=== PATIENT | female | born 1955 | race Caucasian/White ===

== ENCOUNTER 2020-06-03 15:21 | Emergency (ER) | payer BC ==
[2020-06-03 15:48] VITALS: BP 121/73; PULSE 98
--- NOTE | 2020-06-03 15:51 | CR ---
PROCEDURE INFORMATION: Exam: XR Chest, 1 View Exam date and time: 06/03/2020 3:41 PM Age: 65 years old Clinical indication: Other: Covid +; Additional info: Chest pain TECHNIQUE: Imaging protocol: XR of the chest Views: 1 view. COMPARISON: No relevant prior studies available. FINDINGS: Lungs: Unremarkable. No consolidation. Pleural space: Unremarkable. No pleural effusion. No pneumothorax. Heart/Mediastinum: Unremarkable. No cardiomegaly. Bones/joints: Unremarkable. IMPRESSION: No acute findings.
[2020-06-03 16:06] LABS: ANION GAP 16.1 mEq/L (7-13); CHLORIDE,CL 102 mmol/L (98-107); SODIUM,NA 140 mmol/L (136-145)
--- NOTE | 2020-06-03 16:11 | EDM.PDOC ---
ED HPI GENERAL MEDICAL PROBLEM - General Chief Complaint: Respiratory Problem Stated Complaint: SHORTNESS OF BREATH Time Seen by Provider: 06/03/20 16:00 Source of Information: Reports: Patient, RN, RN Notes Reviewed History Limitations: Reports: Respiratory Distress - History of Present Illness INITIAL COMMENTS - FREE TEXT/NARRATIVE: Patient presents to ER with complaint of shortness of breath. Patient states she did notice she was somewhat short of breath the last 2 days, but today is unable to ambulate within her apartment without becoming very short of breath. Patient did have a right knee replacement in the beginning of April. States that right leg has increased swelling to it today, denies redness or warmth to the area. Patient states her thyroid has been "out of whack" and her dose of levothyroxine was just increased to 175mcg. Patient denies any chest pains, N/V/D, fever or chills. Patient states her only known exposure to Covid-19 was on May 12. Onset: Today, Gradual - Related Data Allergies Allergy/AdvReac Type Severity Reaction Status Date / Time erythromycin lactobionate Allergy Stomach Verified 06/03/20 15:42 [From Erythrocin] Ache Home Meds: Home Meds Calcium Carbonate [High Potency Calcium] 600 mg PO DAILY 01/11/14 [History] Levothyroxine Sodium [Synthroid] 175 mcg PO DAILY 01/11/14 [History] Multivitamin [Daily Multiple Vitamin] 1 tab PO DAILY 01/11/14 [History] Venlafaxine [Effexor XR 24 Hr] 150 mg PO DAILY 01/11/14 [History] metFORMIN [Glucophage] 1,000 tab PO BID 06/12/14 [History] atorvaSTATin [Lipitor] 10 mg PO BEDTIME 09/12/14 [History] Aspirin [Halfprin] 81 mg PO DAILY 12/02/14 [History] Losartan [Cozaar] 25 mg PO DAILY 12/02/14 [History] Magnesium 500 mg PO DAILY 02/16/18 [History] Past Medical History HEENT History: Reports: Hard of Hearing, Impaired Vision Cardiovascular History: Reports: High Cholesterol, Hypertension Respiratory History: Reports: None Gastrointestinal History: Reports: GERD Genitourinary History: Reports: None 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 Musculoskeletal History: Reports: Osteoarthritis Neurological History: Reports: None Psychiatric History: Reports: Depression Endocrine/Metabolic History: Reports: Diabetes, Type II, Hypothyroidism, Obesity/BMI 30+ Hematologic History: Reports: None Immunologic History: Reports: None Oncologic (Cancer) History: Reports: None Dermatologic History: Reports: Psoriasis - Infectious Disease History Infectious Disease History: Reports: None - Past Surgical History Head Surgeries/Procedures: Reports: None HEENT Surgical History: Reports: Adenoidectomy, Tonsillectomy GI Surgical History: Reports: Cholecystectomy, Colonoscopy Female Surgical History: Reports: Hysterectomy Musculoskeletal Surgical History: Reports: Knee Replacement Other Musculoskeletal Surgeries/Procedures:: foot surgery Social & Family History - Family History Family Medical History: No Pertinent Family History - Tobacco Use Tobacco Use Status *Q: Never Tobacco User Second Hand Smoke Exposure: No - Caffeine Use Caffeine Use: Reports: Coffee - Recreational Drug Use Recreational Drug Use: No - Living Situation & Occupation Living situation: Reports: , Alone Occupation: Employed ED ROS GENERAL - Review of Systems Review Of Systems: Comprehensive ROS is negative, except as noted in HPI. ED EXAM, GENERAL - Physical Exam Exam: See Below Exam Limited By: Respiratory Distress General Appearance: Alert, WD/WN, Anxious, Moderate Distress Eye Exam: Bilateral Eye: EOMI, Normal Inspection Ears: Normal External Exam, Hearing Grossly Normal Nose: Normal Inspection Throat/Mouth: Normal Inspection, Normal Voice, No Airway Compromise Head: Atraumatic, Normocephalic Neck: Normal Inspection, Supple, Non-Tender, Full Range of Motion Respiratory/Chest: No Accessory Muscle Use, Chest Non-Tender, Decreased Breath Sounds Cardiovascular: Normal Peripheral Pulses, Regular Rate, Rhythm, No Gallop, No JVD, No Murmur, No Rub, Other (swelling to the right knee/calf) Peripheral Pulses: 2+: Radial (L), Radial (R), Dorsalis Pedis (L), Dorsalis Pedis (R) GI/Abdominal: Normal Bowel Sounds, Soft, Non-Tender, No Organomegaly, No Disten tion, No Abnormal Bruit, No Mass, Pelvis Stable (Female) Exam: Deferred Rectal (Female) Exam: Deferred Back Exam: Normal Inspection, Full Range of Motion, NT Extremities: Joint Swelling (right leg swelling) Neurological: Alert, Oriented, CN II-XII Intact, Normal Cognition, Normal Gait, Normal Reflexes, No Motor/Sensory Deficits Psychiatric: Normal Affect, Normal Mood, Anxious Skin Exam: Warm, Dry, Intact, Normal Color, No Rash Lymphatic: No Adenopathy Course - Vital Signs Last Recorded V/S: Last Vital Signs Temp 96.3 F L 06/03/20 15:44 Pulse 98 06/03/20 15:44 Resp 24 H 06/03/20 15:44 BP 121/73 06/03/20 15:44 Pulse Ox 82 L 06/03/20 15:44 - Orders/Labs/Meds Orders: Active Orders 24 hr Category Date Time Status EKG Documentation Completion [RC] STAT Care 06/03/20 15:26 Active URINALYSIS W/MICROSCOPIC [UA W/MICROSCOPIC] [URIN] Stat Lab 06/03/20 15:27 Ordered Heparin Sodium/0.45% NaCl [Heparin 25,000 Units in 1/2 Med 06/03/20 17:30 Active NS 500 ML] 25,000 units in 500 ml IV TITRATE Medication Orders Heparin Sodium/Sodium Chloride (Heparin 25,000 Units In 1/2 Ns 500 Ml) 25,000 units in 500 mls @ 35.206 mls/hr IV TITRATE YASMIN; Protocol Last Admin: 06/03/20 17:28 Dose: 18 units/kg/hr, 35.206 mls/hr Documented by: GAIL Cosigned by: [id number] Labs: Laboratory Tests 06/03/20 06/03/20 06/03/20 Range/Units 15:27 15:38 15:38 WBC 10.4 H (5.0-10.0) 10^3/uL RBC 4.21 (4.2-5.4) 10^6/uL Hgb 12.2 (12.0-16.0) g/dL Hct 37.5 (37.0-47.0) % MCV 89.1 (80-100) fL MCH 29.0 (27.0-34.0) pg MCHC 32.5 L (33.0-35.0) g/dL Plt Count 361 (150-450) 10^3/uL Neut % (Auto) 69.0 (42.2-75.2) % Lymph % (Auto) 22.4 (20.5-50.1) % Aiken % (Auto) 6.9 (2-8) % Eos % (Auto) 1.5 (1.0-3.0) % Baso % (Auto) 0.2 (0.0-1.0) % PT 9.9 (9.0-12.0) SEC INR 1.0 (0.9-1.2) D-Dimer, Quantitative (0-400) ng/mL Sodium (136-145) mmol/L Potassium (3.5-5.1) mmol/L Chloride (98-107) mmol/L Carbon Dioxide (21-32) mmol/L Anion Gap (7-13) mEq/L BUN (7-18) mg/dL Creatinine (0.55-1.02) mg/dL Est Cr Clr Drug Dosing Estimated GFR (MDRD) BUN/Creatinine Ratio (No establ ref range) Glucose (74-99) mg/dL Calcium (8.5-10.1) mg/dL Total Bilirubin (0.2-1.0) mg/dL AST (15-37) U/L ALT (14-59) U/L Alkaline Phosphatase (46-116) U/L Lactate Dehydrogenase (81-234) U/L Troponin I (0.000-0.056) ng/mL C-Reactive Protein (0.0-0.9) mg/dL B-Natriuretic Peptide (0-100) pg/ml Total Protein (6.4-8.2) g/dL Albumin (3.4-5.0) g/dL Globulin Albumin/Globulin Ratio TSH, Ultra Sensitive (0.36-3.74) uIU/mL SARS CoV-2 RNA Rapid CHUCKY Positive H (NEGATIVE) 06/03/20 06/03/20 06/03/20 Range/Units 15:38 15:38 15:38 WBC (5.0-10.0) 10^3/uL RBC (4.2-5.4) 10^6/uL Hgb (12.0-16.0) g/dL Hct (37.0-47.0) % MCV (80-100) fL MCH (27.0-34.0) pg MCHC (33.0-35.0) g/dL Plt Count (150-450) 10^3/uL Neut % (Auto) (42.2-75.2) % Lymph % (Auto) (20.5-50.1) % Aiken % (Auto) (2-8) % Eos % (Auto) (1.0-3.0) % Baso % (Auto) (0.0-1.0) % PT (9.0-12.0) SEC INR (0.9-1.2) D-Dimer, Quantitative 3110 H (0-400) ng/mL Sodium 140 (136-145) mmol/L Potassium 4.1 (3.5-5.1) mmol/L Chloride 102 (98-107) mmol/L Carbon Dioxide 26 (21-32) mmol/L Anion Gap 16.1 H (7-13) mEq/L BUN 13 (7-18) mg/dL Creatinine 1.02 (0.55-1.02) mg/dL Est Cr Clr Drug Dosing TNP Estimated GFR (MDRD) 55 BUN/Creatinine Ratio 12.7 (No establ ref range) Glucose 160 H (74-99) mg/dL Calcium 8.7 (8.5-10.1) mg/dL Total Bilirubin 0.4 (0.2-1.0) mg/dL AST 21 (15-37) U/L ALT 31 (14-59) U/L Alkaline Phosphatase 92 (46-116) U/L Lactate Dehydrogenase 240 H (81-234) U/L Troponin I 1.187 H* (0.000-0.056) ng/mL C-Reactive Protein 3.9 H (0.0-0.9) mg/dL B-Natriuretic Peptide 197 H (0-100) pg/ml Total Protein 6.9 (6.4-8.2) g/dL Albumin 3.4 (3.4-5.0) g/dL Globulin 3.5 Albumin/Globulin Ratio 1.0 TSH, Ultra Sensitive 5.31 H (0.36-3.74) uIU/mL SARS CoV-2 RNA Rapid CHUCKY (NEGATIVE) Meds: Medications Generic Name Dose Route Start Last Admin Trade Name Freq PRN Reason Stop Dose Admin Heparin Sodium/Sodium Chloride 25,000 units in 500 mls @ 35.206 mls/hr 06/03/20 17:30 06/03/20 17:28 Heparin 25,000 Units In / Ns 500 Ml IV 18 units/kg/hr TITRATE YASMIN 35.206 mls/hr Administration Protocol 18 UNITS/KG/HR Discontinued Medications Generic Name Dose Route Start Last Admin Trade Name Freq PRN Reason Stop Dose Admin Dexamethasone 6 mg 06/03/20 18:33 06/03/20 18:39 Decadron IV 06/03/20 18:34 6 mg ONETIME ONE Administration Heparin Sodium (Porcine) 5,000 units 06/03/20 17:16 06/03/20 17:32 Heparin Sodium IVPUSH 06/03/20 17:17 5,000 units .BOLUS ONE Administration Iopamidol 100 ml 06/03/20 16:18 06/03/20 16:29 [id number] (76%) IVPUSH 06/03/20 16:19 100 ml ONETIME ONE Administration - Radiology Interpretation Free Text/Narrative:: Chest xray: PROCEDURE INFORMATION: Exam: XR Chest, 1 View Exam date and time: 06/03/2020 3:41 PM Age: 65 years old Clinical indication: Other: Covid +; Additional info: Chest pain TECHNIQUE: Imaging protocol: XR of the chest Views: 1 view. COMPARISON: No relevant prior studies available. FINDINGS: Lungs: Unremarkable. No consolidation. Pleural space: Unremarkable. No pleural effusion. No pneumothorax. Heart/Mediastinum: Unremarkable. No cardiomegaly. Bones/joints: Unremarkable. IMPRESSION: No acute findings. Thank you for allowing us to participate in the care of your patient. Dictated and Authenticated by: Damari Voss MD 06/03/2020 3:51 PM Central Time ([place] & [place]) Chest CT with contrast: PROCEDURE INFORMATION: Exam: CT Chest With Contrast; Diagnostic Exam date and time: 06/03/2020 4:52 PM Age: 65 years old Clinical indication: Shortness of breath; Patient HX: Pe study; Additional info: Ddimer 3100, covid + TECHNIQUE: Imaging protocol: Diagnostic computed tomography of the chest with intravenous contrast. Radiation optimization: All CT scans at this facility use at least one of these dose optimization techniques: automated exposure control; mA and/or kV adjustment per patient size (includes targeted exams where dose is matched to clinical indication); or iterative reconstruction. Contrast material: [id number]; Contrast volume: 100 ml; Contrast route: INTRAVENOUS (IV); COMPARISON: CR Chest 1V Frontal 06/03/2020 3:41 PM FINDINGS: Lungs: There are multifocal bilateral peripheral nodular and ill-defined ground- glass infiltrates predominating at the lung bases suspicious for COVID-19 pneumonitis. Pleural space: Unremarkable. No pneumothorax. No pleural effusion. Heart: There is thickening of the ventricular septum and dilatation of the right heart chambers. There is no pericardial effusion. Mediastinal space: Small hiatal hernia. Pulmonary arteries: There is a large filling defect straddling the bifurcation of the main pulmonary artery consistent with a saddle embolus. The main pulmonary artery is dilated at 3.1 cm. Thrombus continues into the right and left main pulmonary arteries. Thrombus is identified right segmental and subsegmental right lower lobe branches. Thrombus extends to the left upper lobe segmental and left lower lobe segmental and subsegmental branches. Aorta: Unremarkable. No aortic aneurysm. Lymph nodes: Unremarkable. No enlarged lymph nodes. Small mediastinal lymph nodes measure less than 1 cm. Gallbladder and bile ducts: There has been a cholecystectomy. Bones/joints: Unremarkable. No acute fracture. Soft tissues: Unremarkable. IMPRESSION: 1. Extensive acute pulmonary embolic disease. 2. Dilated main pulmonary artery may reflect pulmonary hypertension. 3. Mild ventricular septal thickening and asymmetric prominence of the right heart. Recommend correlation with echocardiogram to exclude right ventricular dysfunction. 4. Multifocal peripheral nodular airspace infiltrates suspicious for pneumonitis. Primary differential diagnosis is COVID-19 pneumonitis. Thank you for allowing us to participate in the care of your patient. Dictated and Authenticated by: Lynne Chen MD 06/03/2020 5:35 PM Central Time ([place] & [place]) See rad report - Re-Assessments/Exams Free Text/Narrative Re-Assessment/Exam: 06/03/20 17:56 Discussed patient case with Dr. Mares who agreed to accept the patient to [facility]. Patient will transfer per air. 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 use: without terminal make up operator use Diabetes mellitus complication status: without complication Qualified Code(s): E11.9 - Type 2 diabetes mellitus without complications Hypothyroidism Qualifiers: Hypothyroidism type: unspecified Qualified Code(s): E03.9 - Hypothyroidism, unspecified - Discharge Information *PRESCRIPTION DRUG MONITORING PROGRAM REVIEWED*: No *COPY OF PRESCRIPTION DRUG MONITORING REPORT IN PATIENT XU: No Forms: ED Department Discharge, Interfacility Transfer DIA Sepsis Event Note (ED) - Evaluation Sepsis Screening Result: No Definite Risk - Focused Exam Vital Signs: Vital Signs Temp Pulse Resp BP Pulse Ox 06/03/20 15:44 96.3 F L 98 24 H 121/73 82 L - My Orders Last 24 Hours: My Active Orders 06/03/20 15:26 EKG Documentation Completion [RC] STAT 06/03/20 15:27 URINALYSIS W/MICROSCOPIC [UA W/MICROSCOPIC] [URIN] Stat 06/03/20 17:30 Heparin Sodium/0.45% NaCl [Heparin 25,000 Units in 1/2 NS 500 ML] 25,000 units in 500 ml IV TITRATE - Assessment/Plan Last 24 Hours: My Active Orders 06/03/20 15:26 EKG Documentation Completion [RC] STAT 06/03/20 15:27 URINALYSIS W/MICROSCOPIC [UA W/MICROSCOPIC] [URIN] Stat 06/03/20 17:30 Heparin Sodium/0.45% NaCl [Heparin 25,000 Units in 1/2 NS 500 ML] 25,000 units in 500 ml IV TITRATE
[2020-06-03] MEDS ORDERED: Iopamidol 755 Mg/ML 100 ML Bottle IVPUSH ONE (16:18)
[2020-06-03] MEDS ORDERED: Heparin Sodium 5,000 Units/ML Vial IVPUSH ONE (17:16)
[2020-06-03] MEDS ORDERED: Heparin Sodium/0.45% NaCl 25,000 UNITS/500 ML BAG IV SCH (17:30)
--- NOTE | 2020-06-03 17:35 | CT ---
PROCEDURE INFORMATION: Exam: CT Chest With Contrast; Diagnostic Exam date and time: 06/03/2020 4:52 PM Age: 65 years old Clinical indication: Shortness of breath; Patient HX: Pe study; Additional info: Ddimer 3100, covid + TECHNIQUE: Imaging protocol: Diagnostic computed tomography of the chest with intravenous contrast. Radiation optimization: All CT scans at this facility use at least one of these dose optimization techniques: automated exposure control; mA and/or kV adjustment per patient size (includes targeted exams where dose is matched to clinical indication); or iterative reconstruction. Contrast material: [id number]; Contrast volume: 100 ml; Contrast route: INTRAVENOUS (IV); COMPARISON: CR Chest 1V Frontal 06/03/2020 3:41 PM FINDINGS: Lungs: There are multifocal bilateral peripheral nodular and ill-defined ground-glass infiltrates predominating at the lung bases suspicious for COVID-19 pneumonitis. Pleural space: Unremarkable. No pneumothorax. No pleural effusion. Heart: There is thickening of the ventricular septum and dilatation of the right heart chambers. There is no pericardial effusion. Mediastinal space: Small hiatal hernia. Pulmonary arteries: There is a large filling defect straddling the bifurcation of the main pulmonary artery consistent with a saddle embolus. The main pulmonary artery is dilated at 3.1 cm. Thrombus continues into the right and left main pulmonary arteries. Thrombus is identified right segmental and subsegmental right lower lobe branches. Thrombus extends to the left upper lobe segmental and left lower lobe segmental and subsegmental branches. Aorta: Unremarkable. No aortic aneurysm. Lymph nodes: Unremarkable. No enlarged lymph nodes. Small mediastinal lymph nodes measure less than 1 cm. Gallbladder and bile ducts: There has been a cholecystectomy. Bones/joints: Unremarkable. No acute fracture. Soft tissues: Unremarkable. IMPRESSION: 1. Extensive acute pulmonary embolic disease. 2. Dilated main pulmonary artery may reflect pulmonary hypertension. 3. Mild ventricular septal thickening and asymmetric prominence of the right heart. Recommend correlation with echocardiogram to exclude right ventricular dysfunction. 4. Multifocal peripheral nodular airspace infiltrates suspicious for pneumonitis. Primary differential diagnosis is COVID-19 pneumonitis.
[2020-06-03] MEDS ORDERED: Dexamethasone 4 MG/ML SDV IV ONE (18:33)
== END 2020-06-03 19:38 ==
LOC: DL.ED 15:21
DX: U07.1 COVID-19 (principal); J12.89 Other viral pneumonia; I26.92 Saddle embolus of pulmonary artery without acute cor pulmonale; E11.9 Type 2 diabetes mellitus without complications; E03.9 Hypothyroidism, unspecified; R79.89 Other specified abnormal findings of blood chemistry; I10 Essential (primary) hypertension; E78.00 Pure hypercholesterolemia, unspecified; F32.9 Major depressive disorder, single episode, unspecified; E66.9 Obesity, unspecified; Z90.49 Acquired absence of other specified parts of digestive tract; Z90.710 Acquired absence of both cervix and uterus; Z79.84 Long term (current) use of oral hypoglycemic drugs; Z79.82 Long term (current) use of aspirin; Z88.1 Allergy status to other antibiotic agents; Z79.899 Other long term (current) drug therapy
CPT/HCPCS: 36415; 71045; 71260; 80053; 83615; 83880; 84443; 84484; 85025; 85379; 85610; 86140; 87635; 93005; 96365; 96366; 96375; 99285; J1100; J1644; Q9967; U0002

== ENCOUNTER 2020-06-09 06:56 | Emergency (ER) | payer BC ==
[2020-06-09 07:24] VITALS: BP 161/82; PULSE 74
--- NOTE | 2020-06-09 07:55 | EDM.PDOC ---
ED HPI GENERAL MEDICAL PROBLEM - General Chief Complaint: Chest Pain Stated Complaint: SHORTNESS OF BREATH CHEST PAIN Time Seen by Provider: 06/09/20 07:40 Source of Information: Reports: Patient History Limitations: Reports: No Limitations - History of Present Illness INITIAL COMMENTS - FREE TEXT/NARRATIVE: Patient is here for neck/jaw pain that is radiating to her left arm. It started around 0400 this morning. She was diagnosed with COVID pneumonia along with bilateral PE 6 days ago and treated at [facility]. She feels like she just slept on it wrong, but is concerned it may be something more. She was a little more short of breath this morning as well, but thinks it may be due to anxiety. She is able to rub/push on her neck and feels like it is muscular. She does note some tingling in her left arm as well. She was started on Eliquis last week and did take it this morning. Onset: Today Onset Time: 04:00 Location: Reports: Neck, Upper Extremity, Left Left Jaw Pain Score (Numeric/FACES): 4 - Related Data Allergies Allergy/AdvReac Type Severity Reaction Status Date / Time erythromycin lactobionate Allergy Stomach Verified 06/09/20 07:24 [From Erythrocin] Ache Home Meds: Home Meds Calcium Carbonate [High Potency Calcium] 600 mg PO DAILY 01/11/14 [History] Levothyroxine Sodium [Synthroid] 175 mcg PO DAILY 01/11/14 [History] Multivitamin [Daily Multiple Vitamin] 1 tab PO DAILY 01/11/14 [History] Venlafaxine [Effexor XR 24 Hr] 150 mg PO DAILY 01/11/14 [History] metFORMIN [Glucophage] 1,000 tab PO BID 06/12/14 [History] atorvaSTATin [Lipitor] 10 mg PO BEDTIME 09/12/14 [History] Aspirin [Halfprin] 81 mg PO DAILY 12/02/14 [History] Losartan [Cozaar] 25 mg PO DAILY 12/02/14 [History] Magnesium 500 mg PO DAILY 02/16/18 [History] Apixaban [Eliquis] 10 mg PO BID 06/09/20 [History] Omeprazole 20 mg PO DAILY 06/09/20 [History] dexAMETHasone [Dexamethasone] 6 mg PO DAILY 06/09/20 [History] Past Medical History HEENT History: Reports: Hard of Hearing, Impaired Vision Cardiovascular History: Reports: High Cholesterol, Hypertension Respiratory History: Reports: PE Gastrointestinal History: Reports: GERD Genitourinary History: Reports: None 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 Musculoskeletal History: Reports: Osteoarthritis Neurological History: Reports: None Psychiatric History: Reports: Depression Endocrine/Metabolic History: Reports: Diabetes, Type II, Hypothyroidism, Obesity/BMI 30+ Hematologic History: Reports: None Immunologic History: Reports: None Oncologic (Cancer) History: Reports: None Dermatologic History: Reports: Psoriasis - Infectious Disease History Infectious Disease History: Reports: Novel Coronavirus - Past Surgical History Head Surgeries/Procedures: Reports: None HEENT Surgical History: Reports: Adenoidectomy, Tonsillectomy GI Surgical History: Reports: Cholecystectomy, Colonoscopy Female Surgical History: Reports: Hysterectomy Musculoskeletal Surgical History: Reports: Knee Replacement Other Musculoskeletal Surgeries/Procedures:: foot surgery Social & Family History - Family History Family Medical History: No Pertinent Family History - Tobacco Use Tobacco Use Status *Q: Never Tobacco User Second Hand Smoke Exposure: No - Caffeine Use Caffeine Use: Reports: Coffee - Recreational Drug Use Recreational Drug Use: No - Living Situation & Occupation Living situation: Reports: , Alone Occupation: Employed ED ROS GENERAL - Review of Systems Review Of Systems: Comprehensive ROS is negative, except as noted in HPI. ED EXAM, GENERAL - Physical Exam Exam: See Below Exam Limited By: No Limitations General Appearance: Alert, WD/WN, No Apparent Distress Eye Exam: Bilateral Eye: Normal Inspection Ears: Normal External Exam Head: Atraumatic, Normocephalic Neck: Normal Inspection, Supple, Tender Lateral (left, with some muscle spasms noted). No: Lymphadenopathy (L) Respiratory/Chest: No Respiratory Distress, Lungs Clear, Normal Breath Sounds, No Accessory Muscle Use Cardiovascular: Regular Rate, Rhythm, No Gallop, No Murmur, No Rub GI/Abdominal: Soft, No Distention (Female) Exam: Deferred Rectal (Female) Exam: Deferred Back Exam: Normal Inspection, Full Range of Motion Extremities: Normal Inspection Neurological: Alert, Oriented, Normal Cognition Psychiatric: Normal Affect, Normal Mood Skin Exam: Warm, Dry, Intact, Normal Color Lymphatic: No Adenopathy Course - Vital Signs Last Recorded V/S: Last Vital Signs Temp 97.8 F 06/09/20 07:05 Pulse 74 06/09/20 07:05 Resp 18 11/28/20 07:05 BP 161/82 H 06/09/20 07:05 Pulse Ox 92 L 06/09/20 07:05 - Orders/Labs/Meds Orders: Active Orders 24 hr Category Date Time Status EKG Documentation Completion [RC] STAT Care 06/09/20 07:48 Ordered Labs: Laboratory Tests 06/09/20 06/09/20 06/09/20 Range/Units 07:15 07:15 07:15 WBC 10.2 H (5.0-10.0) 10^3/uL RBC 3.75 L (4.2-5.4) 10^6/uL Hgb 10.8 L (12.0-16.0) g/dL Hct 33.5 L (37.0-47.0) % MCV 89.3 (80-100) fL MCH 28.8 (27.0-34.0) pg MCHC 32.2 L (33.0-35.0) g/dL Plt Count 413 (150-450) 10^3/uL Neut % (Auto) 58.6 (42.2-75.2) % Lymph % (Auto) 30.7 (20.5-50.1) % [place] % (Auto) 9.4 H (2-8) % Eos % (Auto) 1.1 (1.0-3.0) % Baso % (Auto) 0.2 (0.0-1.0) % Add Manual Diff Yes Neutrophils % (Manual) 59 (42-75) % Lymphocytes % (Manual) 36 (20-50) % Monocytes % (Manual) 5 (2-8) % D-Dimer, Quantitative 1700 H (0-400) ng/mL Sodium 141 (136-145) mmol/L Potassium 3.8 (3.5-5.1) mmol/L Chloride 104 (98-107) mmol/L Carbon Dioxide 27 (21-32) mmol/L Anion Gap 13.8 H (7-13) mEq/L BUN 13 (7-18) mg/dL Creatinine 0.94 (0.55-1.02) mg/dL Est Cr Clr Drug Dosing 47.82 mL/min Estimated GFR (MDRD) 60 BUN/Creatinine Ratio 13.8 (No establ ref range) Glucose 102 H (74-99) mg/dL Calcium 8.6 (8.5-10.1) mg/dL Total Bilirubin 0.6 (0.2-1.0) mg/dL AST 9 L (15-37) U/L ALT 32 (14-59) U/L Alkaline Phosphatase 70 (46-116) U/L Lactate Dehydrogenase 248 H (81-234) U/L Troponin I 0.029 (0.000-0.056) ng/mL B-Natriuretic Peptide 198 H (0-100) pg/ml Total Protein 5.9 L (6.4-8.2) g/dL Albumin 3.0 L (3.4-5.0) g/dL Globulin 2.9 Albumin/Globulin Ratio 1.03 Departure - Departure Time of Disposition: 08:46 Disposition: Home, Self-Care 01 Condition: Good Clinical Impression: COVID-19, Bilateral pulmonary embolism Neck muscle strain Qualifiers: Encounter type: initial encounter Qualified Code(s): S16.1XXA - Strain of muscle, fascia and tendon at neck level, initial encounter Instructions: Muscle Cramps and Spasms, [id number] Referrals: Amanda Lopez MD [Physician] - (Keep upcoming appointment on Wednesday 06/13) Forms: ED Department Discharge Additional Instructions: Continue current medications as prescribed Keep follow up with Dr. Hall Return to the ER if pain worsens or changes Sepsis Event Note (ED) - Evaluation Sepsis Screening Result: No Definite Risk - Focused Exam Vital Signs: Vital Signs Temp Pulse Resp BP Pulse Ox 06/09/20 07:05 97.8 F 74 18 161/82 H 92 L - My Orders Last 24 Hours: My Active Orders 06/09/20 07:48 EKG Documentation Completion [RC] STAT - Assessment/Plan Last 24 Hours: My Active Orders 06/09/20 07:48 EKG Documentation Completion [RC] STAT
[2020-06-09 08:08] LABS: ANION GAP 13.8 mEq/L (7-13)
== END 2020-06-09 08:59 | disposition home or self-care (01) ==
LOC: DL.ED 06:56
DX: U07.1 COVID-19 (principal); I26.99 Other pulmonary embolism without acute cor pulmonale; E78.00 Pure hypercholesterolemia, unspecified; I10 Essential (primary) hypertension; K21.9 Gastro-esophageal reflux disease without esophagitis; M19.90 Unspecified osteoarthritis, unspecified site; F32.9 Major depressive disorder, single episode, unspecified; E11.9 Type 2 diabetes mellitus without complications; E03.9 Hypothyroidism, unspecified; E66.9 Obesity, unspecified; Z68.38 Body mass index [BMI] 38.0-38.9, adult; Z86.711 Personal history of pulmonary embolism; Z79.82 Long term (current) use of aspirin; Z79.01 Long term (current) use of anticoagulants; Z88.1 Allergy status to other antibiotic agents
CPT/HCPCS: 36415; 80053; 83615; 83880; 84484; 85025; 85379; 93005; 99285-25

== ENCOUNTER 2020-08-13 23:22 | Emergency (ER) | payer BC ==
--- NOTE | 2020-08-13 23:27 | EDM.PDOC ---
ED HPI GENERAL MEDICAL PROBLEM - General Stated Complaint: CHEST PAINS Time Seen by Provider: 08/14/20 00:10 Source of Information: Reports: Patient History Limitations: Reports: No Limitations - History of Present Illness INITIAL COMMENTS - FREE TEXT/NARRATIVE: ED with c/o chest pain radiating up neck. 2nd COVID vaccine today. HX COVID, PE, angina, Chest Pain Score (Numeric/FACES): 7 - Related Data Allergies Allergy/AdvReac Type Severity Reaction Status Date / Time erythromycin lactobionate AdvReac Stomach Verified 08/14/20 00:10 [From Erythrocin] Ache Home Meds: Home Meds Calcium Carbonate [High Potency Calcium] 600 mg PO DAILY 01/11/14 [History] Levothyroxine Sodium [Synthroid] 175 mcg PO DAILY 01/11/14 [History] Multivitamin [Daily Multiple Vitamin] 1 tab PO DAILY 01/11/14 [History] Venlafaxine [Effexor XR 24 Hr] 150 mg PO DAILY 01/11/14 [History] metFORMIN [Glucophage] 1,000 tab PO BID 06/12/14 [History] atorvaSTATin [Lipitor] 10 mg PO BEDTIME 09/12/14 [History] Aspirin [Halfprin] 81 mg PO DAILY 12/02/14 [History] Losartan [Cozaar] 25 mg PO DAILY 12/02/14 [History] Magnesium 500 mg PO DAILY 02/16/18 [History] Apixaban [Eliquis] 10 mg PO BID 06/09/20 [History] Omeprazole 20 mg PO DAILY 06/09/20 [History] dexAMETHasone [Dexamethasone] 6 mg PO DAILY 06/09/20 [History] Past Medical History HEENT History: Reports: Hard of Hearing, Impaired Vision Cardiovascular History: Reports: High Cholesterol, Hypertension Respiratory History: Reports: PE Gastrointestinal History: Reports: GERD Genitourinary History: Reports: None 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 Musculoskeletal History: Reports: Osteoarthritis Neurological History: Reports: None Psychiatric History: Reports: Depression Endocrine/Metabolic History: Reports: Diabetes, Type II, Hypothyroidism, Obesity/BMI 30+ Hematologic History: Reports: None Immunologic History: Reports: None Oncologic (Cancer) History: Reports: None Dermatologic History: Reports: Psoriasis - Infectious Disease History Infectious Disease History: Reports: Novel Coronavirus - Past Surgical History Head Surgeries/Procedures: Reports: None HEENT Surgical History: Reports: Adenoidectomy, Tonsillectomy GI Surgical History: Reports: Cholecystectomy, Colonoscopy Female Surgical History: Reports: Hysterectomy Musculoskeletal Surgical History: Reports: Knee Replacement Other Musculoskeletal Surgeries/Procedures:: foot surgery Social & Family History - Family History Family Medical History: No Pertinent Family History - Caffeine Use Caffeine Use: Reports: Coffee - Living Situation & Occupation Living situation: Reports: , Alone Occupation: Employed ED ROS GENERAL - Review of Systems Review Of Systems: Comprehensive ROS is negative, except as noted in HPI. ED EXAM, GENERAL - Physical Exam Exam: See Below Exam Limited By: No Limitations General Appearance: Alert, Anxious Eye Exam: Bilateral Eye: EOMI Ears: Normal External Exam Nose: Normal Inspection Head: Atraumatic, Normocephalic Neck: Normal Inspection, Full Range of Motion Respiratory/Chest: No Respiratory Distress, Lungs Clear, Normal Breath Sounds Cardiovascular: Normal Peripheral Pulses, Regular Rate, Rhythm, No Edema GI/Abdominal: Normal Bowel Sounds, Soft Neurological: Alert, Oriented, Normal Cognition Psychiatric: Normal Affect, Anxious Skin Exam: Warm, Dry, Intact, Normal Color Course - Vital Signs Last Recorded V/S: Last Vital Signs Temp 99.0 F 08/14/20 03:10 Pulse 88 08/14/20 03:10 Resp 20 08/14/20 03:10 BP 124/58 L 08/14/20 03:10 Pulse Ox 94 L 08/14/20 03:10 - Orders/Labs/Meds Orders: Active Orders 24 hr Category Date Time Status EKG 12 Lead [EKG Documentation Completion] [RC] URGENT Care 08/14/20 03:30 Active Acetaminophen [TylenoL] Med 08/14/20 04:21 Active 650 mg PO NOW PRN Medication Orders Acetaminophen (Tylenol) 650 mg PO NOW PRN PRN Reason: Fever Last Admin: 08/14/20 04:55 Dose: 650 mg Documented by: PREETI Labs: Laboratory Tests 08/13/20 08/13/20 08/13/20 Range/Units 23:34 23:34 23:34 WBC 8.5 (5.0-10.0) 10^3/uL RBC 4.50 (4.2-5.4) 10^6/uL Hgb 12.7 (12.0-16.0) g/dL Hct 38.1 (37.0-47.0) % MCV 84.7 (80-100) fL MCH 28.2 (27.0-34.0) pg MCHC 33.3 (33.0-35.0) g/dL Plt Count 282 (150-450) 10^3/uL Neut % (Auto) 83.5 H (42.2-75.2) % Lymph % (Auto) 9.5 L (20.5-50.1) % [place] % (Auto) 5.2 (2-8) % Eos % (Auto) 1.3 (1.0-3.0) % Baso % (Auto) 0.5 (0.0-1.0) % D-Dimer, Quantitative 555 H (0-400) ng/mL Sodium 139 (136-145) mmol/L Potassium 4.2 (3.5-5.1) mmol/L Chloride 102 (98-107) mmol/L Carbon Dioxide 23 (21-32) mmol/L Anion Gap 18.2 H (7-13) mEq/L BUN 18 (7-18) mg/dL Creatinine 0.84 (0.55-1.02) mg/dL Est Cr Clr Drug Dosing TNP Estimated GFR (MDRD) > 60 BUN/Creatinine Ratio 21.4 (No establ ref range) Glucose 192 H (74-99) mg/dL Calcium 8.9 (8.5-10.1) mg/dL Total Bilirubin 0.4 (0.2-1.0) mg/dL AST 8 L (15-37) U/L ALT 21 (14-59) U/L Alkaline Phosphatase 73 (46-116) U/L Lactate Dehydrogenase 138 (81-234) U/L Troponin I < 0.017 (0.000-0.056) ng/mL C-Reactive Protein 1.6 H (0.0-0.9) mg/dL Total Protein 7.1 (6.4-8.2) g/dL Albumin 4.0 (3.4-5.0) g/dL Globulin 3.1 Albumin/Globulin Ratio 1.3 08/14/20 Range/Units 03:31 WBC (5.0-10.0) 10^3/uL RBC (4.2-5.4) 10^6/uL Hgb (12.0-16.0) g/dL Hct (37.0-47.0) % MCV (80-100) fL MCH (27.0-34.0) pg MCHC (33.0-35.0) g/dL Plt Count (150-450) 10^3/uL Neut % (Auto) (42.2-75.2) % Lymph % (Auto) (20.5-50.1) % [place] % (Auto) (2-8) % Eos % (Auto) (1.0-3.0) % Baso % (Auto) (0.0-1.0) % D-Dimer, Quantitative (0-400) ng/mL Sodium (136-145) mmol/L Potassium (3.5-5.1) mmol/L Chloride (98-107) mmol/L Carbon Dioxide (21-32) mmol/L Anion Gap (7-13) mEq/L BUN (7-18) mg/dL Creatinine (0.55-1.02) mg/dL Est Cr Clr Drug Dosing Estimated GFR (MDRD) BUN/Creatinine Ratio (No establ ref range) Glucose (74-99) mg/dL Calcium (8.5-10.1) mg/dL Total Bilirubin (0.2-1.0) mg/dL AST (15-37) U/L ALT (14-59) U/L Alkaline Phosphatase (46-116) U/L Lactate Dehydrogenase (81-234) U/L Troponin I < 0.017 (0.000-0.056) ng/mL C-Reactive Protein (0.0-0.9) mg/dL Total Protein (6.4-8.2) g/dL Albumin (3.4-5.0) g/dL Globulin Albumin/Globulin Ratio Meds: Medications Generic Name Dose Route Start Last Admin Trade Name Freq PRN Reason Stop Dose Admin Acetaminophen 650 mg 08/14/20 04:21 08/14/20 04:55 Tylenol PO 650 mg NOW PRN Administration Fever Discontinued Medications Generic Name Dose Route Start Last Admin Trade Name Freq PRN Reason Stop Dose Admin Aspirin 81 mg 08/13/20 23:48 08/13/20 23:53 Aspirin PO 08/13/20 23:49 81 mg ONETIME ONE Administration Departure - Departure Time of Disposition: 04:53 Disposition: Home, Self-Care 01 Condition: Good Clinical Impression: Atypical chest pain - Discharge Information *PRESCRIPTION DRUG MONITORING PROGRAM REVIEWED*: No *COPY OF PRESCRIPTION DRUG MONITORING REPORT IN PATIENT XU: No Instructions: Nonspecific Chest Pain, Adult Forms: ED Department Discharge Sepsis Event Note (ED) - Focused Exam Vital Signs: Vital Signs Temp Pulse Resp BP BP Pulse Ox 08/14/20 03:10 99.0 F 88 20 124/58 L 94 L 08/14/20 01:18 97.4 F 103 H 20 147/92 H 97 08/14/20 00:06 98.8 F 102 H 20 149/89 H 96 - My Orders Last 24 Hours: My Active Orders 08/14/20 03:30 EKG 12 Lead [EKG Documentation Completion] [RC] URGENT 08/14/20 04:21 Acetaminophen [TylenoL] 650 mg PO NOW PRN - Assessment/Plan Last 24 Hours: My Active Orders 08/14/20 03:30 EKG 12 Lead [EKG Documentation Completion] [RC] URGENT 08/14/20 04:21 Acetaminophen [TylenoL] 650 mg PO NOW PRN
[2020-08-13] MEDS ORDERED: Aspirin 81 MG Tab.Chew PO ONE (23:48)
--- NOTE | 2020-08-13 23:49 | CR ---
PROCEDURE INFORMATION: Exam: XR Chest, 1 View Exam date and time: 08/13/2020 11:41 PM Age: 65 years old Clinical indication: Chest pain TECHNIQUE: Imaging protocol: XR of the chest Views: 1 view. COMPARISON: CT Chest w Cont, Chest w Cont 06/03/2020 4:52 PM FINDINGS: Clear lungs and pleural spaces. Normal cardiomediastinal silhouette and patent airways. No acute skeletal abnormality or aggressive osseous lesion. IMPRESSION: No acute thoracic pathology.
[2020-08-14 00:04] LABS: ANION GAP 18.2 mEq/L (7-13); CHLORIDE,CL 102 mmol/L (98-107); SODIUM,NA 139 mmol/L (136-145)
[2020-08-14 03:28] VITALS: BP 124/58; PULSE 88
[2020-08-14] MEDS ORDERED: Acetaminophen 325 MG Tab PO PRN (04:21)
== END 2020-08-14 06:00 | disposition home or self-care (01) ==
LOC: DL.ED 23:22
DX: R07.89 Other chest pain (principal); E78.00 Pure hypercholesterolemia, unspecified; I10 Essential (primary) hypertension; K21.9 Gastro-esophageal reflux disease without esophagitis; M19.90 Unspecified osteoarthritis, unspecified site; E11.9 Type 2 diabetes mellitus without complications; E03.9 Hypothyroidism, unspecified; E66.9 Obesity, unspecified; Z68.38 Body mass index [BMI] 38.0-38.9, adult; Z88.1 Allergy status to other antibiotic agents; Z79.82 Long term (current) use of aspirin; Z79.84 Long term (current) use of oral hypoglycemic drugs; Z79.899 Other long term (current) drug therapy; Z86.711 Personal history of pulmonary embolism; Z79.01 Long term (current) use of anticoagulants
CPT/HCPCS: 36415; 71045; 80053; 83615; 84484; 85025; 85379; 86140; 93005; 99285; A9270

== ENCOUNTER 2021-03-27 12:46 | Emergency (ER) | payer BC ==
[2021-03-27] MEDS ORDERED: Aspirin 81 MG Tab.Chew PO ONE (12:50)
--- NOTE | 2021-03-27 13:24 | EDM.PDOC ---
ED HPI GENERAL MEDICAL PROBLEM - General Stated Complaint: ILL Time Seen by Provider: 03/27/21 13:10 Source of Information: Reports: Patient History Limitations: Reports: No Limitations - History of Present Illness INITIAL COMMENTS - FREE TEXT/NARRATIVE: This 65 yo female patient reports to the ED with diffuse anterior chest pain that started this morning. The patient reports her pain has spread to her posterior upper back and shoulders. The patient does have a history of blood clots, but has been taken off all blood thinners except for an 81 mg Aspirin. The patient reports she has attempted to take deep breaths with no changes in symptoms. The patient does have a history of GERD and has been taking Omeprazole as directed. The patient also reports she has noticed some intermittent lower extremity edema over the past 2 weeks. Onset: Today Duration: Hour(s): Location: Reports: Chest Quality: Reports: Pressure Severity: Moderate Improves with: Reports: None Worsens with: Reports: None Context: Reports: Other Associated Symptoms: Reports: Chest Pain - Related Data Allergies Allergy/AdvReac Type Severity Reaction Status Date / Time erythromycin lactobionate AdvReac Stomach Verified 08/14/20 00:10 [From Erythrocin] Ache Home Meds: Home Meds Calcium Carbonate [High Potency Calcium] 600 mg PO DAILY 01/11/14 [History] Levothyroxine Sodium [Synthroid] 175 mcg PO DAILY 01/11/14 [History] Multivitamin [Daily Multiple Vitamin] 1 tab PO DAILY 01/11/14 [History] Venlafaxine [Effexor XR 24 Hr] 150 mg PO DAILY 01/11/14 [History] metFORMIN [Glucophage] 1,000 tab PO BID 06/12/14 [History] atorvaSTATin [Lipitor] 10 mg PO BEDTIME 09/12/14 [History] Aspirin [Halfprin] 81 mg PO DAILY 12/02/14 [History] Losartan [Cozaar] 25 mg PO DAILY 12/02/14 [History] Magnesium 500 mg PO DAILY 02/16/18 [History] Apixaban [Eliquis] 10 mg PO BID 06/09/20 [History] Omeprazole 20 mg PO DAILY 06/09/20 [History] dexAMETHasone [Dexamethasone] 6 mg PO DAILY 06/09/20 [History] Past Medical History HEENT History: Reports: Hard of Hearing, Impaired Vision Cardiovascular History: Reports: High Cholesterol, Hypertension Respiratory History: Reports: PE Gastrointestinal History: Reports: GERD Genitourinary History: Reports: None 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 Musculoskeletal History: Reports: Osteoarthritis Neurological History: Reports: None Psychiatric History: Reports: Depression Endocrine/Metabolic History: Reports: Diabetes, Type II, Hypothyroidism, Obesity/BMI 30+ Hematologic History: Reports: None Immunologic History: Reports: None Oncologic (Cancer) History: Reports: None Dermatologic History: Reports: Psoriasis - Infectious Disease History Infectious Disease History: Reports: Novel Coronavirus - Past Surgical History Head Surgeries/Procedures: Reports: None HEENT Surgical History: Reports: Adenoidectomy, Tonsillectomy GI Surgical History: Reports: Cholecystectomy, Colonoscopy Female Surgical History: Reports: Hysterectomy Musculoskeletal Surgical History: Reports: Knee Replacement Other Musculoskeletal Surgeries/Procedures:: foot surgery Social & Family History - Family History Family Medical History: No Pertinent Family History - Caffeine Use Caffeine Use: Reports: Coffee - Living Situation & Occupation Living situation: Reports: , Alone Occupation: Employed ED ROS GENERAL - Review of Systems Review Of Systems: Comprehensive ROS is negative, except as noted in HPI. ED EXAM, GENERAL - Physical Exam Exam: See Below Exam Limited By: No Limitations General Appearance: Alert, WD/WN, Anxious, Mild Distress Eye Exam: Bilateral Eye: EOMI, Normal Inspection, PERRL Ears: Normal External Exam, Normal Canal, Hearing Grossly Normal, Normal TMs Nose: Normal Inspection, Normal Mucosa, No Blood Throat/Mouth: Normal Inspection, Normal Lips, Normal Teeth, Normal Gums, Normal Oropharynx, Normal Voice, No Airway Compromise Head: Atraumatic, Normocephalic Neck: Normal Inspection, Supple, Non-Tender, Full Range of Motion Respiratory/Chest: No Respiratory Distress, Lungs Clear, Normal Breath Sounds, No Accessory Muscle Use, Chest Non-Tender Cardiovascular: Normal Peripheral Pulses, Regular Rate, Rhythm, No Edema, No Gallop, No JVD, No Murmur, No Rub GI/Abdominal: Normal Bowel Sounds, Soft, Non-Tender, No Organomegaly, No Distention, No Abnormal Bruit, No Mass (Female) Exam: Deferred Rectal (Female) Exam: Deferred Back Exam: Normal Inspection, Full Range of Motion, NT Extremities: Normal Inspection, Normal Range of Motion, Non-Tender, Normal Capillary Refill, No Pedal Edema Neurological: Alert, Oriented, CN II-XII Intact, Normal Cognition, Normal Gait, Normal Reflexes, No Motor/Sensory Deficits Psychiatric: Normal Affect, Normal Mood Skin Exam: Warm, Dry, Intact, Normal Color, No Rash Lymphatic: No Adenopathy Course - Vital Signs Last Recorded V/S: Last Vital Signs Temp 97.6 F 03/27/21 13:19 Pulse Resp 18 03/27/21 13:19 BP Pulse Ox - Orders/Labs/Meds Labs: Laboratory Tests 03/27/21 03/27/21 03/27/21 Range/Units 13:05 13:05 13:05 WBC 7.9 (5.0-10.0) 10^3/uL RBC 4.08 L (4.2-5.4) 10^6/uL Hgb 12.0 (12.0-16.0) g/dL Hct 36.8 L (37.0-47.0) % MCV 90.2 D (80-100) fL MCH 29.4 (27.0-34.0) pg MCHC 32.6 L (33.0-35.0) g/dL Plt Count 261 (150-450) 10^3/uL Neut % (Auto) 59.3 (42.2-75.2) % Lymph % (Auto) 29.0 (20.5-50.1) % [place] % (Auto) 6.4 (2-8) % Eos % (Auto) 4.8 H (1.0-3.0) % Baso % (Auto) 0.5 (0.0-1.0) % D-Dimer, Quantitative < 100 (0-400) ng/mL Sodium 142 (136-145) mmol/L Potassium 4.3 (3.5-5.1) mmol/L Chloride 103 (98-107) mmol/L Carbon Dioxide 30 (21-32) mmol/L Anion Gap 13.3 H (7-13) mEq/L BUN 15 (7-18) mg/dL Creatinine 0.80 (0.55-1.02) mg/dL Est Cr Clr Drug Dosing TNP Estimated GFR (MDRD) > 60 BUN/Creatinine Ratio 18.8 (No establ ref range) Glucose 154 H (70-99) mg/dL Calcium 8.8 (8.5-10.1) mg/dL Total Bilirubin 0.4 (0.2-1.0) mg/dL AST 12 L (15-37) U/L ALT 23 (14-59) U/L Alkaline Phosphatase 78 (46-116) U/L Troponin I High Sens 5 (<=51) pg/mL Total Protein 6.4 (6.4-8.2) g/dL Albumin 3.7 (3.4-5.0) g/dL Globulin 2.7 Albumin/Globulin Ratio 1.4 Meds: Medications Discontinued Medications Generic Name Dose Route Start Last Admin Trade Name Freq PRN Reason Stop Dose Admin Aspirin 243 mg 03/27/21 12:50 03/27/21 13:00 Aspirin 81 Mg Tab.Chew PO 03/27/21 12:51 243 mg ONETIME ONE Administration Departure - Departure Time of Disposition: 13:42 Disposition: Home, Self-Care 01 Condition: Fair Clinical Impression: GERD (gastroesophageal reflux disease) Qualifiers: Esophagitis presence: esophagitis presence not specified Qualified Code(s): K21.9 - Gastro-esophageal reflux disease without esophagitis Instructions: Gastroesophageal Reflux Disease, Adult, [id number] Forms: ED Department Discharge Care Plan Goals: The patient was advised of the examination, lab and EKG results during the visit. The patient was given an additional dose of aspirin while in the ED. The patient was encouraged to continue to take all medications as prescribed. If the patient has any additional symptoms or concerns, the patient should either return to the emergency department or visit her primary care facility. Sepsis Event Note (ED) - Focused Exam Vital Signs: Vital Signs Temp Resp 03/27/21 13:19 97.6 F 18
[2021-03-27 13:34] LABS: ANION GAP 13.3 mEq/L (7-13); CHLORIDE,CL 103 mmol/L (98-107); SODIUM,NA 142 mmol/L (136-145)
== END 2021-03-27 14:05 | disposition home or self-care (01) ==
LOC: DL.ED 12:46
DX: K21.9 Gastro-esophageal reflux disease without esophagitis (principal); E78.00 Pure hypercholesterolemia, unspecified; I10 Essential (primary) hypertension; E11.9 Type 2 diabetes mellitus without complications; E03.9 Hypothyroidism, unspecified; E66.9 Obesity, unspecified; Z68.30 Body mass index [BMI] 30.0-30.9, adult; Z86.16 Personal history of COVID-19; Z79.82 Long term (current) use of aspirin; Z79.899 Other long term (current) drug therapy
CPT/HCPCS: 36415; 80053; 84484; 85025; 85379; 93005; 99285; A9270

== ENCOUNTER 2021-10-31 07:55 | Emergency (ER) | payer BC ==
[2021-10-31] MEDS ORDERED: Ondansetron 4 MG/2 ML SDV IVPUSH ONE (08:05)
[2021-10-31] MEDS ORDERED: Aspirin 81 MG Tab.Chew PO ONE (08:19)
[2021-10-31] MEDS ORDERED: Pantoprazole 40 MG Vial IVPUSH ONE (08:19)
[2021-10-31 08:52] LABS: ANION GAP 17.3 mEq/L (7-13)
[2021-10-31] MEDS ORDERED: Sodium Chloride 0.9% 1,000 ML IV ONE (09:19)
[2021-10-31] MEDS ORDERED: Acetaminophen 325 MG Tab PO ONE (10:17)
[2021-10-31 10:18] VITALS: BP 143/84; PULSE 96
[2021-10-31 11:06] LABS: CORONAVIRUS COVID-19 NAA NEGATIVE (NEGATIVE)
== END 2021-10-31 12:55 | disposition home or self-care (01) ==
LOC: DL.ED 07:55
DX: R07.89 Other chest pain (principal); E86.0 Dehydration; K52.9 Noninfective gastroenteritis and colitis, unspecified; E78.00 Pure hypercholesterolemia, unspecified; K21.9 Gastro-esophageal reflux disease without esophagitis; E03.9 Hypothyroidism, unspecified; I10 Essential (primary) hypertension; E11.9 Type 2 diabetes mellitus without complications; E66.9 Obesity, unspecified; Z68.38 Body mass index [BMI] 38.0-38.9, adult; Z86.16 Personal history of COVID-19; Z90.49 Acquired absence of other specified parts of digestive tract; Z88.0 Allergy status to penicillin; Z79.899 Other long term (current) drug therapy; Z79.84 Long term (current) use of oral hypoglycemic drugs; Z79.82 Long term (current) use of aspirin; Z20.822 Contact with and (suspected) exposure to COVID-19
CPT/HCPCS: 0240U; 36415; 71045; 80053; 81001; 83605; 84484; 85025; 85379; 85610; 93005; 96374; 96375; 99285; A9270; C9113; J2405; J7030

== ENCOUNTER 2022-03-04 13:50 | Emergency (ER) | payer BC ==
[2022-03-04] MEDS ORDERED: Sodium Chloride 0.9% 10 ML Syringe FLUSH PRN (14:21)
[2022-03-04] MEDS ORDERED: Aspirin 81 MG Tab.Chew PO ONE (14:48)
[2022-03-04 15:02] VITALS: BP 149/66; PULSE 82
[2022-03-04 15:08] LABS: ANION GAP 12.1 mEq/L (7-13); CHLORIDE,CL 102 mmol/L (98-107); SODIUM,NA 141 mmol/L (136-145)
[2022-03-04 15:09] LABS: ESTIMATED GFR 66 mL/min (>=60)
[2022-03-04] MEDS ORDERED: Sodium Chloride 0.9% 1,000 ML IV ONE (15:27)
== END 2022-03-04 17:04 | disposition home or self-care (01) ==
LOC: DL.ED 13:50
DX: R07.89 Other chest pain (principal); E78.00 Pure hypercholesterolemia, unspecified; I10 Essential (primary) hypertension; K21.9 Gastro-esophageal reflux disease without esophagitis; E11.9 Type 2 diabetes mellitus without complications; E03.9 Hypothyroidism, unspecified; E66.9 Obesity, unspecified; Z68.30 Body mass index [BMI] 30.0-30.9, adult; Z88.1 Allergy status to other antibiotic agents; Z79.899 Other long term (current) drug therapy; Z79.82 Long term (current) use of aspirin; Z20.822 Contact with and (suspected) exposure to COVID-19
CPT/HCPCS: 36415; 71045; 80053; 83605; 83690; 83735; 83880; 84443; 84484; 85025; 85379; 85651; 86140; 87635; 93005; 96360; 99285; A9270; J3490; J7030; U0002

== ENCOUNTER 2023-03-13 12:56 | Emergency (ER) | payer BC ==
[2023-03-13] MEDS ORDERED: Sodium Chloride 0.9% 10 ML Syringe FLUSH PRN (12:57)
[2023-03-13] MEDS ORDERED: Sodium Chloride 0.9% 1,000 ML IV ONE (12:58)
[2023-03-13] MEDS ORDERED: Iopamidol 612 MG/ML 100 ML Bottle IVPUSH ONE (12:59)
[2023-03-13] MEDS ORDERED: Acetaminophen 500 MG Tab PO ONE (13:04)
[2023-03-13 13:12] LABS: HEMATOCRIT 39.6 % (37.0-47.0); HEMOGLOBIN 13.5 g/dL (12.0-16.0); MEAN CORPUSCULAR HEMOGLOBIN 30.9 pg (27.0-34.0); MEAN CORPUSCULAR HGB CONC 34.1 g/dL (33.0-35.0); MEAN CORPUSCULAR VOLUME 90.6 fL (80-100); PLATELET COUNT,PLT 346 10^3/uL (150-450); RED BLOOD CELL COUNT 4.37 10^6/uL (4.2-5.4); WHITE BLOOD CELL COUNT,WBC 9.5 10^3/uL (5.0-10.0)
[2023-03-13 13:14] LABS: BASOPHILS PERCENT AUTO 0.7 % (0.0-1.0); LYMPHOCYTES PERCENT AUTO 30.5 % (20.5-50.1); MONOCYTES PERCENT AUTO 7.1 % (2-8); NEUTROPHILS PERCENT AUTO 58.7 % (42.2-75.2)
[2023-03-13 13:25] VITALS: BP 154/77; PULSE 80
[2023-03-13 13:32] LABS: A/G RATIO 1.4; ANION GAP 12.5 mEq/L (7-13); BILIRUBIN TOTAL 0.4 mg/dL (0.2-1.0); BUN/CREATININE RATIO 16.1 (No establ ref range); CALCIUM 9.6 mg/dL (8.5-10.1); CREATININE 0.87 mg/dL (0.55-1.02); EST CRCL DRUG DOSING (CG) 52.62 mL/min; POTASSIUM,K 4.5 mmol/L (3.5-5.1); PROTEIN TOTAL,TP 6.9 g/dL (6.4-8.2)
[2023-03-13 13:33] LABS: APPEARANCE,URINE CLEAR (CLEAR); BILIRUBIN,URINE NEGATIVE (NEGATIVE); COLOR,URINE YELLOW (YELLOW); GLUCOSE,URINE NEGATIVE (NEGATIVE); KETONES,URINE NEGATIVE (NEGATIVE); LEUKOCYTE ESTERASE,URINE NEGATIVE (NEGATIVE); NITRITE,URINE NEGATIVE (NEGATIVE); OCCULT BLOOD,URINE NEGATIVE (NEGATIVE); PROTEIN,URINE NEGATIVE (NEGATIVE); UROBILINOGEN,URINE 0.2 mg/dL (0.2-1.0)
[2023-03-13 13:35] LABS: EOSINOPHILS PERCENT MAN 4 % (1-3); LYMPHOCYTES PERCENT MAN 37 % (20-50); MONOCYTES PERCENT MAN 8 % (2-8); SEG NEUTROPHILS PERCENT MAN 51 % (42-75)
[2023-03-13] MEDS ORDERED: Morphine 2 MG/ML SYRINGE IVPUSH ONE (13:40)
[2023-03-13] MEDS ORDERED: Ondansetron 4 MG/2 ML SDV IV ONE (13:40)
[2023-03-13] MEDS ORDERED: Bisacodyl 5 MG Tab PO ONE (14:28)
[2023-03-13] MEDS ORDERED: Lactulose Soln 10 GM/15 ML 30 ML UD Cup PO ONE (14:28)
== END 2023-03-13 14:47 | disposition home or self-care (01) ==
LOC: DL.ED 12:56
DX: K59.00 Constipation, unspecified (principal); E78.00 Pure hypercholesterolemia, unspecified; I10 Essential (primary) hypertension; K21.9 Gastro-esophageal reflux disease without esophagitis; E11.9 Type 2 diabetes mellitus without complications; E03.9 Hypothyroidism, unspecified; E66.9 Obesity, unspecified; Z68.38 Body mass index [BMI] 38.0-38.9, adult; Z86.16 Personal history of COVID-19; Z88.1 Allergy status to other antibiotic agents; Z79.82 Long term (current) use of aspirin; Z79.84 Long term (current) use of oral hypoglycemic drugs; Z79.899 Other long term (current) drug therapy
CPT/HCPCS: 36415; 74177; 80053; 81003; 83605; 85025; 96361; 96374; 96375; 99284; A9270; J2270; J2405; J7030; Q9967; J3490

== ENCOUNTER 2024-07-26 05:27 | Day surgery (SDC) | payer MEDICARE, BC ==
[2024-07-26] MEDS: Dextrose 5%-0.45% NaCl 1,000 ML IV SCH (05:47)
[2024-07-26] MEDS ORDERED: Midazolam 1 MG/ML 2 ML SDV ONE (06:12)
[2024-07-26] MEDS ORDERED: fentaNYL 100 MCG/2 ML SDV ONE (06:12)
[2024-07-26] MEDS ORDERED: Midazolam 1 MG/ML 2 ML SDV IV ONE (06:12)
[2024-07-26] MEDS ORDERED: fentaNYL 100 MCG/2 ML SDV IV ONE (06:12)
[2024-07-26] MEDS: fentaNYL 100 MCG/2 ML SDV IV ONE ×2 (06:23)
[2024-07-26] MEDS: Midazolam 1 MG/ML 2 ML SDV IV ONE ×6 (06:24→06:32)
[2024-07-26 07:12] VITALS: PULSE 63
[2024-07-26 07:48] VITALS: BP 143/65
== END 2024-07-26 07:58 | disposition home or self-care (01) ==
LOC: DL.ENDO 05:27
PROVIDERS: ATTEND Internal Medicine Gastroenterology
DX: D12.2 Benign neoplasm of ascending colon (principal); I10 Essential (primary) hypertension; E11.9 Type 2 diabetes mellitus without complications; E78.5 Hyperlipidemia, unspecified; E83.42 Hypomagnesemia
CPT/HCPCS: 45380; J2250; J3010; J7799; 88305

== ENCOUNTER 2024-09-17 12:42 | Emergency (ER) | payer MEDICARE, BC ==
[2024-09-17 12:58] VITALS: BP 144/56; PULSE 71
[2024-09-17] MEDS: Ketorolac 30 MG/ML SDV IM ONE (13:35)
[2024-09-17] MEDS: Lidocaine 5% 700 MG Patch TOP ONE (13:35)
== END 2024-09-17 14:09 | disposition home or self-care (01) ==
LOC: DL.ED 12:42
DX: S29.9XXA Unspecified injury of thorax, initial encounter (principal); I10 Essential (primary) hypertension; E78.00 Pure hypercholesterolemia, unspecified; E11.9 Type 2 diabetes mellitus without complications; E03.9 Hypothyroidism, unspecified; Z90.49 Acquired absence of other specified parts of digestive tract; Z91.09 Other allergy status, other than to drugs and biological substances; Z79.899 Other long term (current) drug therapy; Z79.82 Long term (current) use of aspirin; Z79.890 Hormone replacement therapy; Z90.710 Acquired absence of both cervix and uterus; W18.2XXA Fall in (into) shower or empty bathtub, initial encounter; Y93.89 Activity, other specified
CPT/HCPCS: 71101; 96372; 99283; A9270; J1885